=== PATIENT | female | born 1975 | race Caucasian/White ===

== ENCOUNTER 2017-12-12 19:14 | Inpatient (IN) | payer OTHER ==
--- NOTE | 2017-12-12 21:19 | HP ---
General Information - General Information Maternal Age: 42 Grav: 3 Para: 2 SAB: 0 IEA: 0 Estimated Due Date: 11/30/17 Determined By: LMP Maternal Blood Type and Rh: B Positive - Results this Serology/RPR Result: Non-Reactive Rubella Result: Immune HBsAg Result: Negative HIV Result: Negative GBS Culture Result: Positive Past Medical History Delivery History: Hx Uncomplicated Vaginal Delivery Delivery History Comment: X 2 2012, 2015 Pertinent Past Medical History: Non-Contributory Past Surgical History Comment: Hernia repair 1979 Pertinent Family History: Non-Contributory Family History Comment: hypercholesteremia stroke HTN CF Diabetes Emphysema muscular dystrophy - Antepartal Records Antepartal Records: Reviewed, Uncomplicated Review of Systems Constitutional: Uncomfortable CV Complaint: No Respiratory: Shortness of Breath: No Gastrointestinal: No Nausea/Vomiting, Soft Stool Genitourinary: No Dysuria, No Leaking Fluid, Spotting Musculoskeletal: Contractions Neurological: No Headache, No Visual Changes Movement: Normal Exam Allergies/Adverse Reactions: Allergies influenza virus vaccine, specific Allergy (Verified 12/12/17 20:25) Difficulty Breathing latex Allergy (Verified 12/12/17 20:25) Rash thimerosal Allergy (Verified 12/12/17 20:25) Pain BP 114/71 T 99.8 RR 20 HR 87 O2 100 - Measurements Height: 5 ft 8 in Weight: 148 lb Weight in lbs: [id number] Body Mass Index (BMI): 22.5 Pre- Weight: 120 lb Weight Gained This : 28 lbs and 0 ozs - Exam Breast: Breast Exam Deferred CVA: No CVA Tenderness Extremities: No Edema Heart: Normal Rhythm/Heart Sounds HEENT: No Significant Findings Lungs: Clear Bilaterally Rectal: Rectal Exam Deferred Reflexes: DTR 2+ Thyroid: - - WNL @ entry to care - Abdominal Exam Abdomen Exam: Non-Tender, Fundal Height Consistent with Dates - Ultrasound/Biophysical Profile Ultrasound Status: Not Done Targeted Exam Findings Estimated Weight: 7.5-8lb Cervical Exam: 8cm Effacement: 100% Station: +1 Presenting Part: Vertex Membrane Status: Intact Bleeding/Discharge: Bloody Show EFM Findings - External Monitor Findings Baseline Heart Rate: 145 External Monitor Findings: Accelerations Present, No Pattern of Variable or Late Decelerations, Variability Moderate Contractions: Regular, Strong, 45-90 Seconds Contraction Frequency: Q2-3 Assessment/Plan - Assessment IUP @ 41+5 weeks gestation in active labor. IBOW, no evidence metabolic acidemia - Obstetrical Risk Factors Obstetrical Risk Factors: GBS Positive - Presumed positive, patient declined test. Declined abx unless prolonged rupture or fever in labor - Plan Plan: Admit - Anticipate Vaginal Delivery Plan Comment: Admit to L&D. Anticipate SVB - Date/Time of Admission Date of Admission: 12/12/17 Time of Admission: 19:53
[2017-12-12] MEDS ORDERED: Ibuprofen TAB* 600 MG PO PRN (23:17)
[2017-12-12] MEDS ORDERED: Acetaminophen TAB* 325 MG PO PRN (23:17)
[2017-12-12] MEDS ORDERED: Dibucaine 1% 28.35 GM TUBE PR PRN (23:17)
[2017-12-12] MEDS ORDERED: Witch Hazel PAD* JAR TOPICAL PRN (23:17)
[2017-12-12] MEDS ORDERED: Glycerin ADULT SUPP PR PRN (23:17)
--- NOTE | 2017-12-13 00:25 | PROCNOTE ---
[facility] OB: Delivery Note - Delivery A Date of : 12/12/17 Time of : 22:14 [place] Sex: Female Weight at : 8 lb 4 oz Score 1 Minute: 9 Score 5 Minutes: 9 Gestational Age in Weeks and Days at Delivery: 41 Weeks and 5 Days Delivery Method: Spontaneous Vaginal Labor: Spontaneous Did Patient attempt ?: N/A, No Previous Estimated Blood Loss: 300 Anesthesia/Analgesia: None Delivered By: Elijah Gallegos - [place] Perineal Injury: Perineal Laceration, 1st Degree Perineal Injury Comment: Repaired with 3-0 Rapide under 1% lidocaine Perineal Repair: By Delivering Practioner - Events Delivery Events of Note: None Apply - Additional Delivery Notes Additional Delivery Notes: Admitted in early labor with steady progression to complete. SROM to clear fluid with urge to push shortly after. LOL 5'54", pushed 27 min. Baby born OA- BUDDY. Loose nuchal X1, baby delivered through and unwrapped after delivery. Shoulders smoothly followed head with maternal efforts. Baby to maternal abdomen with spontaneous cry. Cord doubly clamped and cut by FOB once pulsations ceased. Placenta delivered with gentle cord traction @ 2224. Fundus firm to massage, bleeding well controlled. Baby at breast to initiate . Mother and baby stable and well.
[2017-12-13] MEDS ORDERED: Lidocaine 1%* 5 ML VIAL ONE (01:05)
[2017-12-13 07:06] LABS: ABS Basophils 0.1 10^3/ul (0-0.2); ABS Eosinophils 0 10^3/ul (0-0.6); ABS Lymphocytes 1.8 10^3/ul (1.0-4.8); ABS Neutrophils 11.6 10^3/ul (1.5-7.7); ABS Nucleated RBC 0 10^3/ul; Eosinophil % 0.2 % (0-6); Hematocrit 34 % (35-47); Hemoglobin 12.1 g/dl (12.0-16.0); Lymphocyte % 12.4 % (25-47); Mean Corpuscular HGB Conc 35 g/dl (31-36); Mean Corpuscular Hemoglobin 32 pg (27-31); Mean Corpuscular Volume 90 fL (80-97); Mean Platelet Volume 7.7 um3 (7.4-10.4); Nucleated Red Blood Cells % 0; Platelet Count 176 10^3/ul (150-450); Red Blood Count 3.79 10^6/ul (4.00-5.40); Red Cell Distribution Width 13 % (10.5-15); White Blood Count 14.6 10^3/ul (3.5-10.8)
[2017-12-13] MEDS: Ferrous Gluconate TAB* 324 MG TAB PO SCH ×2 (09:21→21:08)
[2017-12-13] MEDS: Docusate CAP* 100 MG PO SCH ×2 (09:21→21:08)
[2017-12-14 00:48] VITALS: BP 94/56
== END 2017-12-13 22:45 | disposition home or self-care (01) | DRG 775 ==
LOC: MCHOBOUT 19:14 → MCHOB 19:53
PROVIDERS: ADMIT Midwife; ATTEND Midwife
PROC: 10E0XZZ Delivery of Products of Conception, External Approach (ICD-10-PCS; principal; 2017-12-12)
PROC: 0HQ9XZZ Repair Perineum Skin, External Approach (ICD-10-PCS; 2017-12-12)
DX: O48.0 Post-term pregnancy (principal); Z3A.41 41 weeks gestation of pregnancy; O70.0 First degree perineal laceration during delivery; O69.81X0 Labor and delivery complicated by cord around neck, without compression, not applicable or unspecified; Z37.0 Single live birth
CPT/HCPCS: 36415; 85025